=== PATIENT | male | born 2005 | race Caucasian/White ===

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

== ENCOUNTER → 2024-10-20 | Outpatient (CLI) | payer OTHER ==
[~2024-10-20] MED LIST changes: +CLARITIN10 MG PO; +Flonase 0.05% N16 GM; +IBUP600 PO; +MONT10T PO; +Omeprazole20 M1 PO; +Pepcid20 MG PO; +Tamiflu75 MG PO; +Zofran8 MG PO
== END | disposition home or self-care (01) ==
LOC: LAB 16:26 → LAB SHORT 16:26
PROVIDERS: Registered Nurse Community Health
DX: Z20.2 Contact with and (suspected) exposure to infections with a predominantly sexual mode of transmission (principal)
CPT/HCPCS: 87109